=== PATIENT | male | born 1985 | race Hispanic/Latino ===

== ENCOUNTER 2023-10-24 01:57 | Emergency (ER) | payer SELFPAY ==
[2023-10-24 02:05] VITALS: BP 142/96; PULSE 90; RESP 18; TEMP 36.6; O2SAT 97; BMI 33.5
--- NOTE | 2023-10-24 02:09 | DI.RAD.S_ITS ---
PROCEDURE: XR CHEST 1V INDICATIONS: palpitations TECHNIQUE: One view of the chest was acquired. COMPARISON: None. FINDINGS: Surgical changes and devices: None. Lungs and pleura: Lungs are clear. No pleural effusions or pneumothorax. Mediastinum: Mediastinal contours appear normal. Heart size is normal. Bones and chest wall: No suspicious bony lesions. Overlying soft tissues appear unremarkable. IMPRESSION: No acute cardiopulmonary pathology. Dictated by: Blaze Cardona M.D. on 10/24/2023 at 7:43 Approved by: Blaze Cardona M.D. on 10/24/2023 at 7:43
--- NOTE | 2023-10-24 02:14 | ED.ARRPALP ---
HPI - Arrhythmia/Palpitations General Chief Complaint: Arrhythmia/Palpitations Stated Complaint: fast heart rate Time Seen by Provider: 10/24/23 01:59 History of Present Illness HPI narrative: 37-year-old male with no reported past medical history presents with rapid heart rate. Patient states that the pace of his heart woke him from sleep. This is happened several times over the last few weeks, but this is the 1st time it is happened in the middle of the night, and so he decided to present for evaluation. Denies personal or family history of heart problems. Denies tobacco use. Does endorse frequent alcohol use, last drink last night. Related Data Allergies Allergy/AdvReac Type Severity Reaction Status Date / Time No Known Drug Allergies Allergy Verified 10/24/23 02:52 Review of Systems Review of Systems Narrative: CONSTITUTIONAL- Denies: fever, chills, fatigue HEENT- Denies: sore throat, nosebleed, vision changes RESPIRATORY- Denies: shortness of breath, cough, wheezing CARDIAC-reports: Palpitations Denies: chest pain, edema, orthopnea GI- Denies: abdominal pain, nausea, vomiting, constipation, diarrhea - Denies: frequency, dysuria, hematuria, flank pain MSK- Denies: extremity pain, extremity swelling, joint pain, joint swelling SKIN- Denies: rash, itching, burn, swelling NEUROLOGICAL- Denies: headache, numbness, weakness, dizziness PSYCHIATRIC- Denies: anxiety, depression, suicidal ideation, homicidal ideation Patient History Social History Smoking Status: Never smoker Exam Initial Vital Signs Initial Vital Signs: Vital Signs Temperature 98 F 10/24/23 02:05 Pulse Rate 90 10/24/23 02:05 Respiratory Rate 18 10/24/23 02:05 Blood Pressure 142/96 H 10/24/23 02:05 Pulse Oximetry 97 10/24/23 02:05 Oxygen Delivery Method Room Air 10/24/23 02:05 Const: Awake, alert, no acute distress, nontoxic appearing Eyes: PERRL, EOMI, conjunctiva normal ENT: Atraumatic, dentition normal, mucous membranes moist Cardiac: regular rate, regular rhythm RESP: unlabored, clear bilaterally, no wheezing GI: Atraumatic, soft, nontender, nondistended, no rebound, no guarding MSK: Atraumatic, full range of motion, pulses equal Skin: Warm, Dry, intact, no rashes Neuro: AO x3, CN II-XII grossly intact, moves all extremities Psych: affect normal, mood normal, not suicidal, not homicidal Course Orders Ordered: ED Orders 10/24/23 02:09 Chest [XR chest 1V] Stat EKG-12 Lead Stat 10/24/23 02:20 CBC Auto Diff [Complete Blood Count AUTO DIFF] Stat CMP [Comprehensive Metabolic Panel] Stat Ethanol (ETOH) Stat TSH [Thyroid Stimulating Hormone] Stat 10/24/23 02:48 Urine Drug Screen, Rapid Stat Vital Signs Vital signs: Vital Signs - 8 hr 10/24/23 02:05 10/24/23 02:44 10/24/23 02:48 Temperature 98 F Pulse Rate 90 86 85 Respiratory Rate 18 15 21 Blood Pressure 142/96 H Pulse Oximetry 97 95 95 Oxygen Delivery Method Room Air Room Air Room Air 10/24/23 02:48 10/24/23 02:55 10/24/23 02:55 Temperature Pulse Rate 82 Respiratory Rate 22 Blood Pressure 157/99 H 149/83 H Pulse Oximetry 96 Oxygen Delivery Method Room Air 10/24/23 03:00 10/24/23 03:00 10/24/23 03:30 Temperature Pulse Rate 82 Respiratory Rate 18 Blood Pressure 124/89 130/80 Pulse Oximetry 96 Oxygen Delivery Method Room Air 10/24/23 03:30 Temperature Pulse Rate 76 Respiratory Rate 14 Blood Pressure Pulse Oximetry 96 Oxygen Delivery Method Room Air MDM - Arrhythmia/Palpitations Differential Diagnosis Differential diagnosis: Likely palpitations, sinus tachycardia and supraventricular tachycardia Lab Data 10/24/23 02:20 10/24/23 02:20 Labs: Lab Results 10/24/23 10/24/23 Range/Units 02:20 02:48 WBC 6.9 (4.5-11.0) X10^3/uL RBC 5.07 (4.5-5.9) X10^6/uL Hgb 15.2 (13.5-17.5) g/dL Hct 43.9 (41-53) % MCV 86.5 (80-100) fL MCH 30.0 (26-34) PG MCHC 34.7 (30-36) % RDW 12.7 (11.6-14.8) % Plt Count 257 (150-400) X10^3/uL Neut % (Auto) 55.9 (50-75) % Lymph % (Auto) 30.7 (25-40) % Chase % (Auto) 9.8 (3-14) % Eos % (Auto) 3.1 (2-4) % Baso % (Auto) 0.5 (0-2) % Neut # (Auto) 3900 (9655-2193) /uL Lymph # (Auto) 2100 (1434-0665) /uL Chase # (Auto) 700 (0-900) /uL Eos # (Auto) 200 (0-450) /uL Baso # (Auto) 0 (0-100) /uL Sodium 140 (137-145) mmol/L Potassium 3.6 (3.4-5.1) mmol/L Chloride 108 H (98-107) mmol/L Carbon Dioxide 24 (22-32) mmol/L BUN 14 (9-20) mg/dL Creatinine 0.72 (0.66-1.25) mg/dL Estimated GFR > 60 (>60) mL/min BUN/Creatinine Ratio 19.4 (6-22) Glucose 101 H (70-100) mg/dL Calcium 9.4 (8.4-10.2) mg/dL Total Bilirubin 0.6 (0.2-1.3) mg/dL AST 45 (17-59) IU/L ALT 82 H (<50) IU/L Alkaline Phosphatase 73 (38-126) U/L Total Protein 7.6 (6.3-8.2) g/dL Albumin 4.5 (3.5-5.0) g/dL Globulin 3.1 (1.7-4.1) g/dL Albumin/Globulin Ratio 1.5 (1.0-2.8) TSH 2.41 (0.47-4.68) uIU/mL U Opiates 300ng/mL cut Negative (Negative) Ur Oxycodone Screen Negative (Negative) Urine Methadone Screen Negative (Negative) Ur Barbiturates Screen Negative (Negative) U Tricyclic Antidepress Negative (Negative) Ur Phencyclidine Scrn Negative (Negative) Ur Amphetamines Screen Negative (Negative) U Methamphetamines Scrn Negative (Negative) Ur MDMA Scrn (Ecstasy) Negative (Negative) U Benzodiazepines Scrn Negative (Negative) Urine Cocaine Screen Negative (Negative) U Marijuana (THC) Screen Negative (Negative) Ethyl Alcohol 16 H ( - 10) mg/dL ECG Data Interpretation: Normal sinus rhythm at a rate 86 beats per minute. Normal CA, normal axis, no ST T wave changes, no STEMI MDM Narrative Medical decision making narrative: This is a well-appearing patient with reports of rapid heart rate waking him up in the middle of the night. Patient is currently normal sinus rhythm approximately 80-90 beats per minute, no a arrhythmias. EKG is normal sinus rhythm without concerning findings. Suspect that patient's tachycardia is at least slightly related to alcohol use. We will order labs and imaging. Laboratory work is reviewed, no significant abnormalities. Chest x-ray is negative for acute findings. Patient has remained on air sampling and monitoring at a rate of 80-90 beats per minute, normal sinus rhythm without arrhythmia. I discussed the results of all labs and imaging with the patient and his friend at bedside. I strongly recommended decreasing alcohol intake to see if this has an effect on his reported tachycardia at home. Strongly encouraged PCP follow up, and a referral was provided. ED return precautions discussed at bedside. Patient expressed understanding of the plan and is in agreement at this time. All questions answered at the time of discharge. Discharge Plan Departure Patient Disposition: Home Clinical Impression: Palpitations Instructions: DI for Palpitations Referrals: Jayson Mark MD [Physician] - Stand Alone Forms: Patient Portal/API
[2023-10-24 02:37] LABS: Add Manual Diff / Slide Review NO; Basophils Absolute Auto 0 /uL (0-100); Basophils Percent Auto 0.5 % (0-2); Eosinophils Absolute Auto 200 /uL (0-450); Eosinophils Percent Auto 3.1 % (2-4); Hematocrit 43.9 % (41-53); Hemoglobin 15.2 g/dL (13.5-17.5); Lymphocytes Absolute Auto 2100 /uL (1100-4500); Lymphocytes Percent Auto 30.7 % (25-40); Mean Corpuscular HGB Conc 34.7 % (30-36); Mean Corpuscular Volume 86.5 fL (80-100); Monocytes Absolute Auto 700 /uL (0-900); Monocytes Percent Auto 9.8 % (3-14); Neutrophils Absolute Auto 3900 /uL (1500-7000); Neutrophils Percent Auto 55.9 % (50-75); Platelet Count 257 X10^3/uL (150-400); Red Blood Cell Count 5.07 X10^6/uL (4.5-5.9); Red Cell Distribution Width 12.7 % (11.6-14.8); White Blood Cell Count 6.9 X10^3/uL (4.5-11.0)
[2023-10-24 02:44] VITALS: PULSE 86; RESP 15; O2SAT 95
[2023-10-24 02:47] LABS: Alanine Aminotransferase 82 IU/L (<50); Albumin 4.5 g/dL (3.5-5.0); Albumin Globulin Ratio 1.5 (1.0-2.8); Alkaline Phosphatase 73 U/L (38-126); Aspartate Aminotransferase 45 IU/L (17-59); BUN Creatinine Ratio 19.4 (6-22); Bilirubin Total 0.6 mg/dL (0.2-1.3); Blood Urea Nitrogen 14 mg/dL (9-20); Calcium 9.4 mg/dL (8.4-10.2); Carbon Dioxide 24 mmol/L (22-32); Chloride 108 mmol/L (98-107); Estimated Glomerular Filt Rate > 60 mL/min (>60); Ethanol (ETOH) 16 mg/dL; Globulin 3.1 g/dL (1.7-4.1); Glucose 101 mg/dL (70-100); HEMOLYSIS 16 (0-50); Potassium 3.6 mmol/L (3.4-5.1); Sodium 140 mmol/L (137-145); Total Protein 7.6 g/dL (6.3-8.2)
[2023-10-24 02:48] VITALS: BP 157/99; PULSE 85; RESP 21; O2SAT 95
[2023-10-24 02:55] VITALS: BP 149/83; PULSE 82; RESP 22; O2SAT 96
[2023-10-24 03:00] VITALS: BP 124/89; PULSE 82; RESP 18; O2SAT 96
[2023-10-24 03:02] LABS: Ur Creatinine Normal (Normal); Ur Specific Gravity Normal (Normal); Urine pH Normal (Normal)
[2023-10-24 03:03] LABS: UR Morphine/Opiate cutoff 300 Negative (Negative); Urine Amphetamines Negative (Negative); Urine Barbiturates Negative (Negative); Urine Benzodiazepines Negative (Negative); Urine Cocaine Negative (Negative); Urine MDMA Negative (Negative); Urine Methadone Negative (Negative); Urine Methamphetamines Negative (Negative); Urine Oxycodone Negative (Negative); Urine Phencyclidine Negative (Negative); Urine Tetrahydrocannabinol Negative (Negative); Urine Tricyclic Antidepressant Negative (Negative)
[2023-10-24 03:22] LABS: Thyroid Stimulating Hormone 2.41 uIU/mL (0.47-4.68)
[2023-10-24 03:30] VITALS: BP 130/80; PULSE 76; RESP 14; O2SAT 96
== END 2023-10-24 03:39 | disposition home or self-care (01) ==
PROVIDERS: Emergency Provider Emergency Medicine
DX: R00.0 Tachycardia, unspecified (principal); R00.2 Palpitations
CPT/HCPCS: 36415; 71045; 80053; 80305; 80320; 84443; 85025; 93005; 93010; 99284